=== PATIENT | male | born 1975 | race Caucasian/White ===

== ENCOUNTER → 2016-07-22 | Outpatient (CLI) | payer OTHER ==
[~2016-07-22] MED LIST: ACYC400T PO; ALBU6.7H INH; ASCO500C PO; ASPI81TA11 PO; BUSP10 PO; CALC1TAB23; CHOL4 PO; FISH1200 PO; GABA300C3 PO; GINK40TA PO; GINK40TA2; KETO60IN6 IM; LISI-363 PO; METH125I2 IM; METH750T PO; METH750T2 PO; MULT1TAB85 PO; MULTCAP14 PO; OMEG12002 PO; OMPR20CCR PO; PRIL20CA9 PO; VITA200C3 PO; VITA250L PO; VITA500C9; [UNRECOGNIZED DRUG - CODE]
[2016-07-22 11:12] LABS: AUTOMATED NEUTROPHIL # 3.4 TH/MM3 (1.8-7.7); BASOPHIL % 0.5 % (0.0-2.0); EOSINOPHIL # 0.1 TH/MM3 (0-0.4); EOSINOPHIL % 1.2 % (0.0-4.0); HEMATOCRIT 40.6 % (39.0-51.0); HEMO FLAGS DIFF FINAL; LYMPH % 29.8 % (9.0-44.0); LYMPHOCYTE # 1.7 TH/MM3 (1.0-4.8); MEAN CELL VOLUME 89.3 FL (80.0-100.0); MEAN CORPUSCULAR HEMOGLOBIN 31.6 PG (27.0-34.0); MEAN CORPUSCULAR HGB CONC 35.4 % (32.0-36.0); MONO % 8.7 % (0.0-8.0); NEUT % 59.8 % (16.0-70.0); PLATELET COUNT 254 TH/MM3 (150-450); RED BLOOD COUNT 4.54 MIL/MM3 (4.50-5.90); RED CELL DISTRIBUTION WIDTH 12.8 % (11.6-17.2); WHITE BLOOD COUNT 5.7 TH/MM3 (4.0-11.0)
[2016-07-22 11:39] LABS: ALT (GPT) 25 U/L (12-78); ANION GAP 5 MEQ/L (5-15); AST (GOT) 10 U/L (15-37); BICARBONATE 30.6 MEQ/L (21.0-32.0); BLOOD UREA NITROGEN 9 MG/DL (7-18); CHLORIDE 105 MEQ/L (98-107); GLOMERULAR FILTRATION RATE 96 ML/MIN (>89); GLUCOSE,FASTING 98 MG/DL (74-99); SODIUM (NA) 141 MEQ/L (136-145)
[2016-07-22 11:49] LABS: ALKALINE PHOSPHATASE 66 U/L (45-117); HDL CHOLESTEROL 34.6 MG/DL (40.0-60.0); LDL CHOLESTEROL 78 MG/DL (0-99); TOTAL BILIRUBIN ADULT 0.7 MG/DL (0.2-1.0)
== END ==
LOC: CLAB 10:51
PROVIDERS: ATTEND Physician Assistant Medical
DX: I10 Essential (primary) hypertension (principal)
CPT/HCPCS: 36415; 80053; 80061; 84443; 85025

== ENCOUNTER → 2016-09-12 | Outpatient (CLI) | payer OTHER ==
[~2016-09-12] MED LIST changes: -ASPI81TA11 PO; -BUSP10 PO; -CHOL4 PO; -GABA300C3 PO; -LISI-363 PO; -VITA250L PO
[2016-09-12 15:33] LABS: AUTOMATED NEUTROPHIL # 2.6 TH/MM3 (1.8-7.7); BASOPHIL % 0.4 % (0.0-2.0); EOSINOPHIL # 0.1 TH/MM3 (0-0.4); EOSINOPHIL % 2.5 % (0.0-4.0); HEMATOCRIT 43.1 % (39.0-51.0); HEMO FLAGS DIFF FINAL; LYMPH % 39.4 % (9.0-44.0); LYMPHOCYTE # 2.1 TH/MM3 (1.0-4.8); MEAN CELL VOLUME 89.4 FL (80.0-100.0); MEAN CORPUSCULAR HEMOGLOBIN 30.5 PG (27.0-34.0); MEAN CORPUSCULAR HGB CONC 34.1 % (32.0-36.0); MONO % 8.7 % (0.0-8.0); PLATELET COUNT 226 TH/MM3 (150-450); RED BLOOD COUNT 4.82 MIL/MM3 (4.50-5.90); RED CELL DISTRIBUTION WIDTH 12.8 % (11.6-17.2); WHITE BLOOD COUNT 5.3 TH/MM3 (4.0-11.0)
[2016-09-12 15:59] LABS: ALT (GPT) 21 U/L (12-78); ANION GAP 9 MEQ/L (5-15); AST (GOT) 15 U/L (15-37); BICARBONATE 28.8 MEQ/L (21.0-32.0); CHLORIDE 103 MEQ/L (98-107); GLOMERULAR FILTRATION RATE 85 ML/MIN (>89); GLUCOSE,FASTING 94 MG/DL (74-99); POTASSIUM 3.9 MEQ/L (3.5-5.1); SODIUM (NA) 141 MEQ/L (136-145)
[2016-09-12 16:04] LABS: ALKALINE PHOSPHATASE 57 U/L (45-117); BLOOD UREA NITROGEN 12 MG/DL (7-18); HDL CHOLESTEROL 33.6 MG/DL (40.0-60.0); LDL CHOLESTEROL 92 MG/DL (0-99); TOTAL BILIRUBIN ADULT 0.6 MG/DL (0.2-1.0)
== END ==
LOC: CLAB 15:10
PROVIDERS: ATTEND Family Medicine
DX: I10 Essential (primary) hypertension (principal); E78.1 Pure hyperglyceridemia; M54.9 Dorsalgia, unspecified
CPT/HCPCS: 36415; 80053; 80061; 84443; 85025

== ENCOUNTER → 2016-10-22 | Outpatient (CLI) | payer OTHER ==
[~2016-10-22] MED LIST changes: -CALC1TAB23; -FISH1200 PO; -GINK40TA2; -METH750T2 PO; -MULTCAP14 PO; -OMPR20CCR PO; -VITA500C9; -[UNRECOGNIZED DRUG - CODE]
== END ==
LOC: CLAB 15:04
PROVIDERS: ATTEND Family Medicine
DX: E78.1 Pure hyperglyceridemia (principal)
CPT/HCPCS: 36415; 84478